=== PATIENT | female | born 1975 | race Caucasian/White ===

== ENCOUNTER 2016-07-20 08:14 | Day surgery (SDC) | payer OTHER ==
[~2016-07-20] VITALS: Ht 162.6 cm; Wt 102.1 kg
[~2016-07-20 08:14] MED LIST: 0.9% Sodium Chloride 1,000 ML IV SCH; ALBU8.5H4 IH; FLUT12AE10 IH; OMEP20CA11 PO; Sodium Chloride LOK Flush 10 mL Syringe IV PRN; VIT C PO; fentaNYL-PF 50 mCg/mL 2 mL Inj IVPUSH PRN
[2016-07-20 08:36] VITALS: BP 144/87; PULSE 95; RESP 17; O2SAT 100
[2016-07-20] MEDS ORDERED: MULT-1018 PO (08:43)
[2016-07-20] MEDS ORDERED: FLUT9.9S NS (08:43)
[2016-07-20 09:41] VITALS: BP 132/69; PULSE 100; RESP 15; O2SAT 96
[2016-07-20 09:51] VITALS: BP 134/71; PULSE 91; RESP 14; O2SAT 97
[2016-07-20 10:01] VITALS: BP 126/67; PULSE 101; RESP 16; O2SAT 96
[2016-07-20 10:11] VITALS: BP 132/67; PULSE 93; RESP 16; O2SAT 98
--- NOTE | 2016-07-20 13:39 | ENDO ---
[address] [address] ENDOSCOPY PROCEDURE PATIENT: FIORELLA HAWLEY : 1975 MR#: [id number] ADMIT: 07/20/2016 JOB ID: [id number] PROCEDURE: Esophagogastroduodenoscopy. INDICATION: Gastroesophageal reflux. Patient's ASA classification is I. Mallampati score is II. MEDICATIONS: Versed 8 mg, fentanyl 175 mcg. INSTRUMENT USED: [id number]. PROCEDURE DETAILS: After informed consent was obtained, patient was brought to the GI suite, where she was placed on oxygen via nasal cannula and monitored with continuous pulse oximeter, telemetry, and blood pressure monitoring. A time-out was performed. Then, she was placed in a left lateral decubitus position and medications were administered for sedation. A bite block was placed. The standard EGD scope was inserted through the bite block and advanced under direct visualization to second portion of the duodenum without difficulty. FINDINGS: 1. Normal-appearing duodenal bulb, first and second portion. Multiple random biopsies were obtained. 2. Normal-appearing pylorus, antrum, and gastric body. 3. Retroflexed views in the gastric body revealed a normal-appearing cardia and fundus. 4. Multiple random biopsies were obtained throughout the antrum and body of stomach. 5. Normal-appearing GE junction with a regular Z-line at 39 cm. 6. Normal-appearing esophagus. IMPRESSION: Normal esophagogastroduodenoscopy exam to second portion of the duodenum. RECOMMENDATIONS: 1. Continue PPI. 2. Weight loss encouraged. 3. Proceed to colonoscopy. COMPLICATIONS: None. ESTIMATED BLOOD LOSS: Less than 5 mL. PROCEDURE PERFORMED: Colonoscopy. INDICATION: Change in bowel habits. Please see above for ASA classification, Mallampati score, and medications. INSTRUMENT USED: [id number]. Prep quality was good. PROCEDURE DETAILS: After completion of the EGD exam, the patient was turned and then a digital rectal exam was performed which was unremarkable. Colonoscope was then inserted into the rectum and advanced under direct visualization to the terminal ileum which was identified by the presence of the ileocecal valve and villous appearing mucosa of the terminal ileum. Once the terminal ileum was reached, the colonoscope was withdrawn back into the rectum, as the mucosa and lumen were examined. In the rectum, retroflexion was performed. Following retroflexion, remaining air in the rectum was suctioned, and procedure was completed. FINDINGS: 1. Normal-appearing terminal ileum. I was only able to briefly intubate the terminal ileum and repeated attempts to reintubate the terminal ileum were unsuccessful. At this point, the colonoscope was withdrawn back into the rectum and random biopsies were obtained throughout the colon. The colon mucosa from rectum to cecum appeared normal. 2. Retroflexed views in the rectum revealed moderate-sized internal hemorrhoids. IMPRESSION: 1. Normal exam from rectum to cecum. 2. Internal hemorrhoids. RECOMMENDATIONS: 1. Consider trial of MiraLAX if constipation persists. 2. Follow up in GI clinic. COMPLICATIONS: None. ESTIMATED BLOOD LOSS: Less than 5 mL.
--- NOTE | 2016-07-23 14:23 | PATH ---
SURGICAL PATHOLOGY Attending Physician:Madisyn Garcia CASE STATUS: Signed Out PATIENT NAME: FIORELLA HAWLEY PID: [id number] : 1975 DATE COLLECTED:07/20/2016 19:46 SPECIMEN: 1: Duodenum, Biopsy 2: Gastric, Biopsy 3: Colon, Biopsy CLINICAL HISTORY: 1). DUODENUM BIOPSY 2). GASTRIC BIOPSY 3). RANDOM COLON BIOPSY FINAL DIAGNOSIS: 1.DUODENUM BIOPSY: FRAGMENTS OF NORMAL-APPEARING DUODENUM MUCOSA. Normal delicate mucosal villi present. Negative for significant inflammation, dysplasia and malignancy. 2.GASTRIC BIOPSY: MILD CHRONIC GASTRITIS INVOLVING ANTRAL AND FUNDIC MUCOSA. Negative for evidence of Helicobacter. Negative for intestinal metaplasia. Negative for dysplasia and malignancy. 3.RANDOM COLON BIOPSIES: FRAGMENTS OF NORMAL-APPEARING COLON MUCOSA. Negative for significant architectural distortion. Negative for significant inflammation, dysplasia and malignancy. ICD10 code K29.70 GROSS DESCRIPTION: Received are three formalin-filled containers, each labeled with the patient' s name. 1. Received in formalin, labeled with the patient' s name and "duodenum BX", are three fragments of march, soft tissue ranging in size from 0.1 x 0.1 x 0.1 cm to 0.2 x 0.2 x 0.1 cm. All fragments are totally submitted in cassette 1A. 2. Received in formalin, labeled with the patient' s name and "gastric BX", are three fragments of march, soft tissue ranging in size from less than 0.1 cm by less than 0.1 cm by less than 0.1 cm to 0.1 x 0.1 x 0.1 cm. All fragments are totally submitted in cassette 2A. 3. Received in formalin, labeled with the patient' s name and "random colon BX", are multiple fragments of march, soft tissue ranging in size from 0.1 x 0.1 x 0.1 cm to 0.2 x 0.2 x 0.2 cm. All fragments are totally submitted in cassette 3A. ([id number]) MICRO DESCRIPTION: See diagnosis. ICD-9 CODES: CPT CODES: 1: 03007 2: 44229 3: 20581 Electronically Signed Out Andrew Sanders MD [facility] Pathology [facility]., [address] [place] [address], [place] [id number] Technical component performed at [facility], [address], [place], [address]
[2016-07-24] MEDS ORDERED: ASCO500C6 PO (13:01)
[2016-07-24] MEDS ORDERED: DIGESTZEN PO (13:01)
[2016-07-24] MEDS ORDERED: IBUP-1827 PO (13:02)
== END 2016-07-20 23:59 | disposition home or self-care (01) ==
LOC: END 08:14
PROVIDERS: ATTEND Internal Medicine Gastroenterology
DX: R19.4 Change in bowel habit (principal); K64.8 Other hemorrhoids; K29.50 Unspecified chronic gastritis without bleeding; K21.9 Gastro-esophageal reflux disease without esophagitis; F41.9 Anxiety disorder, unspecified; J30.9 Allergic rhinitis, unspecified; D64.9 Anemia, unspecified; F32.9 Major depressive disorder, single episode, unspecified; E66.9 Obesity, unspecified; Z68.39 Body mass index [BMI] 39.0-39.9, adult
CPT/HCPCS: 43239; 45380; 88305; 99153; G0500; J7030

== ENCOUNTER 2016-09-10 21:09 | Emergency (ER) | payer OTHER ==
[~2016-09-10] VITALS: Ht 162.6 cm; Wt 104.5 kg
[~2016-09-10 21:09] MED LIST changes: -0.9% Sodium Chloride 1,000 ML IV SCH; +ASCO500C6 PO; +DIGESTZEN PO; +FLUT9.9S NS; +IBUP-1827 PO; +MULT-1018 PO; -Sodium Chloride LOK Flush 10 mL Syringe IV PRN; -VIT C PO; -fentaNYL-PF 50 mCg/mL 2 mL Inj IVPUSH PRN
[2016-09-10 21:14] VITALS: BP 162/90; PULSE 92; RESP 16; O2SAT 100
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
[2016-09-11 00:46] LABS: BASOPHILS % (AUTO) 0.4 % (0-3); EOSINOPHILS % (AUTO) 1.6 % (0-5); MONOCYTES % (AUTO) 5.7 % (4-12); Mean Corpuscular Hemoglobin 24.2 pg (27.0-35.0); Platelet Count 343 bil/L (150-400)
[2016-09-11 01:14] VITALS: BP 11/54; PULSE 91; RESP 20; O2SAT 96
[2016-09-11 01:18] VITALS: BP 133/90; PULSE 89; RESP 20; O2SAT 96
[2016-09-11 01:25] VITALS: BP 125/83; PULSE 80; RESP 16; O2SAT 99
[2016-09-11 01:37] LABS: Magnesium 1.9 mg/dL (1.6-2.6); TROPONIN T 0.01 ug/L (0.0-0.011)
[2016-09-11 02:10] VITALS: BP 117/69; PULSE 81; RESP 16; O2SAT 98
--- NOTE | 2016-09-11 10:33 | DRSVH ---
PROCEDURE: X-RAY CHEST ONE VIEW, PORTABLE ([id number]) INDICATIONS: palpitations TECHNIQUE: One view of the chest was acquired. COMPARISON: [facility], CR, XR CHEST 2VW, 06/09/2015, 10:02. FINDINGS: Surgical changes and devices: None. Lungs and pleura: No pleural effusions or pneumothorax. Lungs are clear. Mediastinum: Mediastinal contours appear normal. Heart size is normal. Bones and chest wall: No suspicious bony lesions. Overlying soft tissues appear unremarkable. IMPRESSION: No acute cardiopulmonary disease. Dictated by: Chaz Infante [facility] Interpreted: Jose Sanchez MD on 09/11/2016 at 10:32 Transcribed by: MICKEY on 09/11/2016 at 10:32 Approved by: Jose Sanchez M.D. on 09/11/2016 at 11:45
== END 2016-09-11 02:11 | disposition home or self-care (01) ==
LOC: SED 21:09
DX: R00.2 Palpitations (principal); J45.909 Unspecified asthma, uncomplicated; D64.9 Anemia, unspecified; Z88.5 Allergy status to narcotic agent; Z91.040 Latex allergy status